=== PATIENT | female | born 1995 | race Caucasian/White ===

== ENCOUNTER 2022-08-30 20:37 | Emergency (ER) | payer OTHER, SELFPAY ==
[2022-08-30 21:25] VITALS: BP 109/72; PULSE 98; RESP 18; O2SAT 100
--- NOTE | 2022-08-30 21:48 | PC.NURSE ---
pt. ambulatory to triage states I am just going to go home.
== END 2022-08-30 21:48 | disposition left against medical advice (07) ==
DX: R51.9 Headache, unspecified (principal)
CPT/HCPCS: 99199

== ENCOUNTER 2022-09-06 00:09 | Inpatient (IN) | payer OTHER, SELFPAY ==
[2022-09-06] VITALS (142 sets, daily range): BP systolic 71–123; BP diastolic 36–87; PULSE 40–125; RESP 16–18; TEMP 36.2–36.8; O2SAT 80–100; BMI 22.5
--- NOTE | 2022-09-06 01:29 | LDADM ---
This patient, Donna Akers, was admitted to Labor/Delivery/Recovery 104 on 09/06/22 at 00:09. Plans for labor, pain management and were discussed with patient. Patient/family oriented to hospital policies and general routines including ID bracelet, bed and alarms, visiting hours, pain management, procedures, bathroom and other care routines, personal items, smoking policy, room service/diet and guest tray routines, infant security routines, and visiting hours. Patient/Family are encouraged to report perceived risks to care and to ask questions if they do not understand what they are told or what they should do. See OBIX for further documentation.
[2022-09-06 02:06] LABS: Basophils Absolute Auto 0.1 K/mm3 (0.0-0.1); Basophils Percent Auto 0.4 % (0.2-1.2); Eosinophils Absolute Auto 0.1 K/mm3 (0-0.3); Eosinophils Percent Auto 0.4 % (0-4.4); Hematocrit 31.2 % (37.0-47.0); Hemoglobin 9.6 g/dL (12.0-15.0); Immature Granulocyte Absolute 0.14 K/mm3 (0.00-0.031); Lymphocytes Absolute Auto 2.83 K/mm3 (0.9-3.2); Lymphocytes Percent Auto 20.5 % (18.3-44.2); Mean Corpuscular HGB Conc 30.8 g/dl (32-36); Mean Corpuscular Hemoglobin 22.2 pg (26-34); Mean Corpuscular Volume 72.2 fl (80-100); Mean Platelet Volume 9.5 fl (7.4-10.4); Monocytes Absolute Auto 1.2 K/mm3 (0.1-0.6); Monocytes Percent Auto 8.8 % (2.6-8.5); Neutrophils Absolute Auto 9.5 K/mm3 (1.3-6.7); Neutrophils Percent Auto 68.9 % (45.5-73.1); Platelet Count Result 523 k/mm3 (150-375); Red Blood Count 4.32 M/mm3 (4.2-5.4); Red Cell Distribution Width 16.4 % (11.5-14.5); White Blood Count 13.8 K/mm3 (4.5-10.0)
[2022-09-06 02:17] LABS: Microcytosis 1+ (NORMAL); Platelet Estimate Increased (Adequate); Schistocytes None Seen (NORMAL)
[2022-09-06] MEDS: LACTATED RINGERS 1,000 ML 125 ML IV CONT ×2 (02:17→02:48)
[2022-09-06] MEDS: ONDANSETRON INJ 4 MG/2 ML VIAL IV PUSH (02:47)
--- NOTE | 2022-09-06 03:00 | WPDANESEPPF ---
Anes - Initial Pre Proc Eval Procedure: Labor Epidural Date/Time: 09/06/22 03:00 Surgeon: Renee Still MD Pre Op Diagnosis: Labor Pain Pre Op Diagnosis: Contractions Patient Data Age: 27 Gender: F Height: 1.6 m Weight: 57.7 kg Last Vital Signs Pulse 76 09/06/22 02:31 BP 118/79 09/06/22 02:46 Pulse Ox 99 09/06/22 02:59 O2 Del Method Room Air 09/06/22 01:23 Allergies Allergy/AdvReac Type Severity Reaction Status Date / Time Penicillins Allergy Severe Difficulty Verified 08/18/22 13:30 Breathing Home Medications Medication Instructions Recorded Confirmed Type prenat.vits,rukhsana,zht-hboo-fzdet 1 tablet PO DAILY 08/18/22 08/18/22 History Laboratory Tests 09/06/22 01:59 WBC 13.8 H K/mm3 (4.5-10.0) RBC 4.32 M/mm3 (4.2-5.4) Hgb 9.6 L g/dL (12.0-15.0) Hct 31.2 L % (37.0-47.0) MCV 72.2 L fl (80-100) MCH 22.2 L pg (26-34) MCHC 30.8 L g/dl (32-36) RDW 16.4 H % (11.5-14.5) Plt Count 523 H k/mm3 (150-375) MPV 9.5 fl (7.4-10.4) Immature Gran % (Auto) 1.0 H % (0-0.5) Neut % (Auto) 68.9 % (45.5-73.1) Lymph % (Auto) 20.5 % (18.3-44.2) Power % (Auto) 8.8 H % (2.6-8.5) Eos % (Auto) 0.4 % (0-4.4) Baso % (Auto) 0.4 % (0.2-1.2) Lymph # (Auto) 2.83 K/mm3 (0.9-3.2) Power # (Auto) 1.2 H K/mm3 (0.1-0.6) Eos # (Auto) 0.1 K/mm3 (0-0.3) Baso # (Auto) 0.1 K/mm3 (0.0-0.1) Abs Immat Gran (auto) 0.14 H K/mm3 (0.00-0.031) Absolute Neuts (auto) 9.5 H K/mm3 (1.3-6.7) Absolute Nucleated RBC 0.0 K/mm3 (0.0-0.012) Nucleated RBC % 0.0 % (0.0-0.2) Platelet Estimate Increased (Adequate) Microcytosis 1+ (NORMAL) Schistocytes None seen (NORMAL) RPR Pending Blood Type A Positive Antibody Screen Pending Patient hx anesthesia problems: none Family hx anesthesia problems: none Results Review: All pre-operative results and documents have been reviewed as part of the pre-operative evaluation. [facility] Family History Family History Other Patient denies significant medical history Social History Social History Smoking status: Never smoker Substance use: never Lack of Transportation: No Lack of Food: Never True Current Housing: I Have Housing Concerned About Future Housing: No Difficulty Paying Gas/Electric Bills: No Difficulty Paying for Meds: No Currently Unemployed: No Education: High School Diploma/GED Difficulty w/ Childcare or Family Care: No Spiritual care concerns: No Anes - Eval Final PreProcedure Day of Procedure 09/06/22 03:00 Patient weight: normal Heart: regular rate and rhythm Neurological: alert and oriented ASA classification: II Emergent: no Anesthetic plan: proceed Anesthesia type and monitoring: regional epidural and standard monitoring Results Review: All pre-operative results and documents have been reviewed as part of the pre-operative evaluation. Informed Consent: The patient's anesthetic plan and its attendant risks and benefits were discussed with the patient/family/POA. Questions were solicited and answers provided to the satisfaction of the patient/family/POA.
--- NOTE | 2022-09-06 03:24 | WPDANESEPN ---
Anes - Epidural Procedure Note Date/Time: 09/06/22 03:24 Consent: I have discussed with the patient/family/POA, the placement of an epidural catheter and the use of epidural narcotic/local anesthetic for labor analgesia and/or postoperative pain management, including associated potential risks, benefits, complications and side effects. I have discussed alternative methods of labor analgesia and/or postoperative pain management. The patient/family/POA, understand(s) and wish(es) to proceed with epidural narcotic/local anesthetic for labor analgesia and/or postoperative pain management. Time-Out: A pre-procedural Time-Out was completed immediately before starting the procedure and confirmed: Patient Identification, Site, Procedure, Patient Position and the Availability of Requisite Equipment. Clinical Indications: Labor Pain Epidural Insertion Note Patient position: sitting Skin prep: chlorhexidine and sterile drape Needle: 18g Tuohy-Schliff Catheter: 20g Unstyleted Technique: Loss of resistance. Level of insertion: L4/5 Catheter skin francis (cm): 4 Length in epidural space (cm): 9 Skin anesthesia: lidocaine 1% Test dose: 1.5% Lidocaine with [id number] Epi, negative for subarachnoid Inj and negative for intravascular Inj Time of test dose: 03:13 Observations: tolerated well
--- NOTE | 2022-09-06 07:33 | PM.IMHP ---
H&P: HPI History of Present Illness Date/Time: 09/06/22 07:33 Chief Complaint: labor Narrative: multip prsented in labor at 38+ weeks. uncomplicated. GBS neg. Review of Systems Review of Systems: All systems reviewed & are unremarkable except as noted in HPI and below PMFSH Family History Family History Other Patient denies significant medical history Social History Social History Smoking status: Never smoker Substance use: never Lack of Transportation: No Lack of Food: Never True Current Housing: I Have Housing Concerned About Future Housing: No Difficulty Paying Gas/Electric Bills: No Difficulty Paying for Meds: No Currently Unemployed: No Education: High School Diploma/GED Difficulty w/ Childcare or Family Care: No Spiritual care concerns: No Meds Home Medications and Allergies Home Medications Medication Instructions Recorded Confirmed Type prenat.vits,rukhsana,znz-hdus-uvgxz 1 tablet PO DAILY 08/18/22 08/18/22 History Allergies Allergy/AdvReac Type Severity Reaction Status Date / Time Penicillins Allergy Severe Difficulty Verified 08/18/22 13:30 Breathing Vital Signs Vital Signs - 24 hr 09/06/22 00:45 09/06/22 01:01 09/06/22 01:16 Pulse Rate 79 80 74 Blood Pressure 112/73 110/67 105/67 Pulse Oximetry Oxygen Delivery 09/06/22 01:31 09/06/22 01:45 09/06/22 02:01 Pulse Rate 79 81 125 H Blood Pressure 113/76 108/78 111/56 L Pulse Oximetry Oxygen Delivery 09/06/22 02:15 09/06/22 02:31 09/06/22 02:46 Pulse Rate 73 76 Blood Pressure 109/74 107/72 118/79 Pulse Oximetry Oxygen Delivery 09/06/22 02:58 09/06/22 02:58 09/06/22 02:59 Pulse Rate Blood Pressure Pulse Oximetry 80 L 81 L 99 Oxygen Delivery 09/06/22 03:01 09/06/22 03:04 09/06/22 03:07 Pulse Rate 76 87 Blood Pressure 115/78 107/71 Pulse Oximetry 97 85 L Oxygen Delivery 09/06/22 03:08 09/06/22 03:13 09/06/22 03:16 Pulse Rate 79 88 Blood Pressure 109/71 96/74 L Pulse Oximetry 89 L 99 Oxygen Delivery 09/06/22 03:17 09/06/22 03:18 09/06/22 03:19 Pulse Rate 73 77 Blood Pressure 116/81 122/73 Pulse Oximetry 100 Oxygen Delivery 09/06/22 03:22 09/06/22 03:23 09/06/22 03:25 Pulse Rate 80 71 Blood Pressure 118/72 114/62 Pulse Oximetry 100 Oxygen Delivery 09/06/22 03:28 09/06/22 03:31 09/06/22 03:33 Pulse Rate 79 66 Blood Pressure 117/66 120/62 Pulse Oximetry 100 100 Oxygen Delivery 09/06/22 03:34 09/06/22 03:37 09/06/22 03:38 Pulse Rate 67 69 Blood Pressure 120/69 116/69 Pulse Oximetry 99 Oxygen Delivery 09/06/22 03:40 09/06/22 03:43 09/06/22 03:46 Pulse Rate 62 65 72 Blood Pressure 122/71 119/68 123/72 Pulse Oximetry 100 Oxygen Delivery 09/06/22 03:48 09/06/22 03:49 09/06/22 03:52 Pulse Rate 65 63 Blood Pressure 118/66 117/71 Pulse Oximetry 99 Oxygen Delivery 09/06/22 03:53 09/06/22 03:55 09/06/22 03:58 Pulse Rate 64 Blood Pressure 120/68 Pulse Oximetry 100 99 Oxygen Delivery 09/06/22 04:01 09/06/22 04:03 09/06/22 04:08 Pulse Rate 75 Blood Pressure 123/78 Pulse Oximetry 99 99 Oxygen Delivery 09/06/22 04:13 09/06/22 04:16 09/06/22 04:18 Pulse Rate 78 Blood Pressure 113/72 Pulse Oximetry 99 98 Oxygen Delivery 09/06/22 04:23 09/06/22 04:28 09/06/22 04:31 Pulse Rate 65 Blood Pressure 116/75 Pulse Oximetry 99 99 Oxygen Delivery 09/06/22 04:33 09/06/22 04:38 09/06/22 04:43 Pulse Rate Blood Pressure Pulse Oximetry 99 98 99 Oxygen Delivery 09/06/22 04:46 09/06/22 04:48 09/06/22 04:53 Pulse Rate 83 Blood Pressure 115/70 Pulse Oximetry 98 98 Oxygen Delivery 09/06/22 04:58 09/06/22 05:01 09/06/22 05:03 Pulse Rate 67 Blood Pressure 98/50 L
[2022-09-06] MEDS: OXYTOCIN 30 UNITS/NS 500 ML 30 UNITS/500 ML BAG 999 UNITS IV CONT (07:44)
[2022-09-06 07:46] LABS: Rapid Plasma Reagin Non-Reactive (NonReactive)
--- NOTE | 2022-09-06 07:57 | PM.OBPRVD ---
OB - Delivery Note Procedure Delivery date: 09/06/22 Procedure: Delivery monitor: External FHT and Internal Uterine Route of delivery: Episiotomy description: None Laceration Description: None Quantitative Blood Loss (ml): 50 Anesthesia type: Epidural Disposition: Floor Narrative: With adequate expulsive efforts by the mother, the baby's head was delivered OA. The baby's anterior shoulder was delivered under the pubic symphysis without difficulty. The posterior shoulder and the rest of the baby delivered without difficulty. The infant was placed on the mothers chest and suctioned and stimulated. The cord was clamped and cut immediately due to short cord. Mother and baby both stable. Baby Date of : 09/06/22 Time of : 07:40 Weeks of gestation at delivery: 38 gender: Male Weight (pounds): 5 Weight (ounces): 15 presentation: vertex Placenta delivery description: Spontaneous Cord Vessel Description: 3 Vessels and Clamped/Cut score one minute: 9 score five minutes: 9
[2022-09-06] MEDS: OXYTOCIN 30 UNITS/NS 500 ML 30 UNITS/500 ML BAG 125 UNITS IV CONT (08:17)
[2022-09-06 08:34] LABS: Amphetamine Screen Urine Negative (Negative); Barbiturate Screen Urine Negative (Negative); Benzodiazepines Screen Urine Negative (Negative); Cannabinoid Screen Urine Negative (Negative); Cocaine Screen Urine Negative (Negative); Methadone Screen Urine Negative (Negative); Opiate Screen Urine Negative (Negative); Phencyclidine Screen Urine Negative (Negative)
--- NOTE | 2022-09-06 10:25 | PC.NURSE ---
Patient transferred to post room #283 via wheel chair. Support person present. Oriented to unit, room, information board, rooming in, admission packet and security measures. Patient verbalizes understanding.
[2022-09-06] MEDS: IBUPROFEN 600 MG TABLET PO ×3 (10:48→23:30)
[2022-09-06] MEDS: DOCUSATE SODIUM 100 MG CAPSULE PO (17:17)
[2022-09-06] MEDS: POLYSACCHARIDE IRON COMPLEX 150 MG CAPSULE PO (17:17)
[2022-09-07 04:55] LABS: Hematocrit 29.1 % (37.0-47.0)
[2022-09-07 07:12] VITALS: BP 101/67; PULSE 62; RESP 16; TEMP 36.4; O2SAT 99
--- NOTE | 2022-09-07 07:50 | PM.OBPNVD ---
OB - PN: Subj Subjective Date/time seen: 09/07/22 07:50 , day 1, no complaints OB - PN: Obj Data Labs 09/07/22 04:16 Labs: Laboratory Results - last 24 hr 09/06/22 09/07/22 08:06 04:16 Hgb 9.0 L Hct 29.1 L Urine Opiates Screen Negative Urine Methadone Screen Negative Ur Barbiturates Screen Negative Ur Phencyclidine Scrn Negative Ur Amphetamine Screen Negative U Benzodiazepines Scrn Negative Urine Cocaine Screen Negative U Cannabinoids Screen Negative OB - PN A/P Plan day: 1 Time Spent With Patient Time: Total time spent is greater than 50% in coordination of care (as documented) at patient's floor/unit and/or counseling patient: Review of Systems Review of Systems: All systems reviewed & are unremarkable except as noted in HPI and below Exam Narrative: fundus firm Const: General: cooperative and healthy appearing Chest: Chest palpation & inspection: normal inspection of the chest Resp: Effort & Inspection: normal respiratory effort Skin: General skin exam: normal color Psych: Appearance: grossly normal
[2022-09-07] MEDS: POLYSACCHARIDE IRON COMPLEX 150 MG CAPSULE PO ×2 (08:39→16:04)
[2022-09-07] MEDS: IBUPROFEN 600 MG TABLET PO ×2 (08:39→16:05)
--- NOTE | 2022-09-07 08:41 | PC.NURSE ---
On 09/07/22, the student, Shandra Bautista, provided care and completed [facility] documentation on this patient. I have reviewed the student's documentation and agree with the findings.
--- NOTE | 2022-09-07 12:07 | WPDANLDPN2 ---
Anes-Prog Note L&D Date/Time: 09/07/22 12:07 Neuro status: Neuro function grossly intact. Vital Signs: Last Vital Signs Temp 36.4 C L 09/07/22 07:12 Pulse 62 09/07/22 07:12 Resp 16 09/07/22 07:12 BP 101/67 09/07/22 07:12 Pulse Ox 99 09/07/22 07:12 O2 Del Method Room Air 09/06/22 23:30 Pain score (VAS): 0 Patient feedback: Patient satisfied with anesthetic care.
--- NOTE | 2022-09-07 16:10 | PC.NURSE ---
Spoke with patient regarding custody of her other three children, per pt her older sister has custody of her first child (4 years old), she has custody of her second child (2 years old) and her third child (almost 1 year old) is in protective custody due to having a heart defect. Per patient DCFS is going to make a home visit tomorrow 09/08/22 @ 3pm. Jenifer with Care Coordination spoke with pt today as well and was given the same information, she is going to contact DCFS and follow up with the RN tomorrow regarding discharge. Copy of this note to be put into baby's chart.
--- NOTE | 2022-09-07 17:10 | PCCCNOTE ---
Addendum entered by JUSTIN Canela 09/08/22 16:22: Received call this morning from DCFS registered nurse supervisor David out of [facility], . David confirms pt. is current with DCFS and reports that pt. and baby are able to discharge from this hospital today and pt.'s ongoing director of casework will meet them at their home this afternoon. RN aware. Original Note: Care Coordination Consult Received consult regarding open DCFS case for pt. Met with pt. and [employer] who reports the following information. They reside at home together. Pt. has four total children, a 3 year old (in custody of pt.'s sister), 2 year old (in protective custody via DCFS) , 1 year old (in care of pt.) and baby boy Delphine. Pt. confirms she has a current DCFS case involving her two year old in regards to medical concerns in [facility]. Requested name of DCFS worker however this was not provided to CC. Pt. confirms she has been drug testing through [facility] as apart of the court ordered services. She reports a past use of marijuana. Denies any substances at this time. Baby and pt. were drug tested with urinalysis for both negative. Umbilical cord is pending at this time. Pt. has all necessary equipment and supplies for baby at home. Has WIC information if needed. resources and donation basket provided to them for use at discharge. Spoke with [facility] social group worker Elana in reference of above information and reports information will be taken and sent to the [facility] office for review, intake ID [id number]. Per Elana the [facility] office will contact CC in the morning regarding whether they will need to come see pt. prior to discharge. CESAR aware. Will follow.
[2022-09-07 19:53] VITALS: BP 110/73; PULSE 58; RESP 16; TEMP 36.9; O2SAT 99
[2022-09-07] MEDS: ACETAMINOPHEN 325 MG TABLET 650 MG PO (20:00)
[2022-09-08] MEDS: IBUPROFEN 600 MG TABLET PO ×2 (02:05→08:26)
--- NOTE | 2022-09-08 07:18 | PM.OBPNVD ---
OB - PN: Subj Subjective Date/time seen: 09/08/22 07:18 Patient comments: no complaints, pain well controlled and tolerating diet OB - PN: Obj Data Labs 09/07/22 04:16 OB - PN A/P Plan day: 2 Plan: routine care and discharge home Time Spent With Patient Time: Total time spent is greater than 50% in coordination of care (as documented) at patient's floor/unit and/or counseling patient: Exam Const: General: comfortable and no acute distress Resp: Effort & Inspection: normal respiratory effort Auscultation: no rales, no rhonchi and no wheezes Cardio: Rate: regular rate Heart sounds: no click, no murmurs and no rubs GI: GI Palp: Yes Soft to palpation and No Tenderness to palpation present (GI) Auscultation: normal bowel sounds Extrem: General: normal to inspection, no pedal edema and no calf tenderness
--- NOTE | 2022-09-08 07:21 | PM.OBDSVD ---
DS: Admitting Diagnosis Discharge Date 09/08/22 Admitting Diagnosis term OB - DS: Summary OB Procedures : None OB Procedures Intrapartum: Spontaneous Vag Delivery OB Procedures: : None Time Spent with Patient Time attestation: Total time spent providing and/or coordinating discharge services: Discharge Plan Discharge Discharging Clinician: Lauren Shin Patient Disposition: Home, Self-Care Activity: pelvic rest Diet: regular Patient Instructions: Antibiotic Form Stand Alone Forms: General Discharge Information Follow-up/Referrals: Lauren Shin MD [Physician] - Discharge Medications: Continued #2 Tablet 1 tablet PO DAILY Date of admission: 09/06/22 00:09 Primary Care Provider: PHYSICIAN,[employer] Admitting Provider: Renee Still Attending physician on admission: Renee Still Condition: Stable
[2022-09-08 08:19] VITALS: BP 101/71; PULSE 73; RESP 18; TEMP 36.3; O2SAT 100
[2022-09-08] MEDS: POLYSACCHARIDE IRON COMPLEX 150 MG CAPSULE PO (08:26)
--- NOTE | 2022-09-08 08:30 | PC.NURSE ---
Patient viewed the discharge video Mother & Baby Care, The First Two Weeks . Patient was given the opportunity and encouraged to ask questions. Patient verbalized understanding of information shared and has been given the mother/baby guide for home reference.
[2022-09-08] MEDS: ACETAMINOPHEN 325 MG TABLET 650 MG PO (13:06)
[2022-09-08] MEDS: WITCH HAZEL 40 PADS 1 PAD TOPICAL (13:07)
[2022-09-08] MEDS: BENZOCAINE 20% AER SPR (*SP) 56 GM CAN 1 SPRAY TOPICAL (13:07)
[2022-09-09 13:04] VITALS: BP 106/73; PULSE 69; RESP 16; TEMP 37.5; O2SAT 99
== END 2022-09-08 13:56 | disposition home or self-care (01) | DRG 560 ==
LOC: ANHOB2 09-08 13:42 → ANHLDR 09-09 11:36 → ANHOB2 09-09 11:36
PROVIDERS: Admitting Provider Obstetrics & Gynecology; Visit Provider Obstetrics & Gynecology
DX: O43.113 Circumvallate placenta, third trimester (principal); O77.0 Labor and delivery complicated by meconium in amniotic fluid; Z37.0 Single live birth; Z3A.38 38 weeks gestation of pregnancy
CPT/HCPCS: 36415; 80307; 85014; 85018; 85025; 86592; 86850; 86900; 86901; A9270; J2405; J2590; J2795; J7120

== ENCOUNTER 2022-12-12 01:00 | Day surgery (SDC) | payer OTHER, SELFPAY ==
[2022-12-06 14:32] VITALS: BMI 21.2
--- NOTE | 2022-12-06 14:37 | SUR.PREOP ---
Report to the Outpatient Waiting Room, entrance under the green pavilion located off [facility], at time _0600 on date _12/12/22 . Planned Procedure Time: __30 . Time changes happen often and if your time is changed the preop area will call you the afternoon before. - You and your visitor will be asked to self-screen and do not enter if you have any COVID symptoms. - A mask is optional within the hospital at this time. Patients may have clear liquids (water, carbonated beverages, clear teas, apple juice) until 3 hours prior to surgery with a maximum of 20 ounces. - No food from midnight until time of surgery - Infants may have breast milk until 4 hours before surgery, infant formula 6 hours prior to surgery. - Children will be allowed to drink immediately following surgery. If applicable, please bring a bottle or sippy cup to assist with drinking. Juice, water, soda, and popsicles are readily available. For infants on formula, please bring formula the day of surgery. Pacifiers are allowed. Take the following medications with a SIP of water the morning of surgery: n/a DO NOT STOP ANY OF YOUR OTHER PRESCRIPTION MEDICATIONS PRIOR TO SURGERY ?EXCEPT THE FOLLOWING Medications to discontinue per physician n/a Date to take last dose__n/a Please no make-up, nail japanese, hairspray, perfume, deodorant, or body powder the day of surgery. No jewelry (including any body piercings) or valuables the day of surgery, leave them at home. Please take a shower or bath the night before, or the morning of, surgery with an antibacterial soap. Wear comfortable, loose fitting clothing. Children are encouraged to wear pajamas. - Jewelry must be removed prior to entering the operating room. Rings and piercings that are not removed may be cut off. - The hospital will not accept responsibility for valuables. - Please leave all valuables, including medications, at home the day of surgery. If you are going home after surgery, a licensed production truck driver must drive you home. - NO public transportation without another adult if you receive anesthesia. - We recommend that an adult stay with you for 24 hours following discharge. - We also recommend that you do not drive, make important decision, drink alcoholic beverages, or take any drugs that were not prescribed by your health care provider for at least 24 hours after your discharge time. For Pediatric surgeries, we recommend two adults accompany the child home. Follow any additional instructions given to you from your surgeon. If you or anyone in your household have experienced Covid symptoms in the past week, please notify your surgeon or the nurse liaison at the phone number below for possible testing. Telephone instructions given to gareth barraza and asked if any additional questions and then verbalized understanding. Patient advised to call surgeon office or pre surgery nurse liaison [phone] if any additional questions.
[2022-12-12] VITALS (15 sets, daily range): BP systolic 92–117; BP diastolic 50–74; PULSE 60–107; RESP 12–18; TEMP 36.1–36.5; O2SAT 96–100
[2022-12-12] MEDS: ACETAMINOPHEN 500 MG TABLET 1000 MG PO (06:18)
--- NOTE | 2022-12-12 06:38 | P.PNAN_ITS ---
Anes - Initial Pre Proc Eval Procedure: Operation Date: 12/12/22 07:30 Proposed Procedures p Bilateral Laparoscopic Salpingectomy - Renee Still MD Date/Time: 12/12/22 06:38 Surgeon: Renee Still MD Pre Op Diagnosis: desires sterilization Patient Data Age: 27 Gender: F Height: 1.6 m Weight: 53.5 kg Allergies Allergy/AdvReac Type Severity Reaction Status Date / Time Penicillins Allergy Severe Difficulty Verified 12/12/22 06:15 Breathing Home Medications Medication Instructions Recorded Confirmed Type No Home Medications 12/06/22 12/06/22 History Patient hx anesthesia problems: none Family hx anesthesia problems: none Results Review: All pre-operative results and documents have been reviewed as part of the pre- operative evaluation. [facility] Family History Family History Other Patient denies significant medical history Social History Social History Smoking status: Never smoker Substance use: never Lack of Transportation: No Lack of Food: Never True Current Housing: I Have Housing Concerned About Future Housing: No Difficulty Paying Gas/Electric Bills: No Difficulty Paying for Meds: No Currently Unemployed: No Education: High School Diploma/GED Difficulty w/ Childcare or Family Care: No Living arrangements: with family Spiritual care concerns: No Anes - Eval Final PreProcedure Day of Procedure 12/12/22 06:38 Patient weight: normal Heart: regular rate and rhythm Lungs: clear to auscultation Airway: Mallampati scale class III and special considerations poor dentition Neurological: alert and oriented Last oral intake: >/= 8 hours ASA classification: II Emergent: no Anesthetic plan: proceed Anesthesia type and monitoring: general ETT and standard monitoring Results Review: All pre-operative results and documents have been reviewed as part of the pre- operative evaluation. Informed Consent: The patient's anesthetic plan and its attendant risks and benefits were discussed with the patient/family/POA. Questions were solicited and answers provided to the satisfaction of the patient/family/POA.
[2022-12-12] MEDS: LACTATED RINGERS 1,000 ML 30 ML IV CONT ×3 (06:50→10:30)
[2022-12-12] MEDS: KETOROLAC 15 MG/ML VIAL (*BKC) IV PUSH (06:50)
--- NOTE | 2022-12-12 07:22 | PM.IMHP ---
H&P: HPI History of Present Illness Date/Time: 12/12/22 07:22 Chief Complaint: sterilization Narrative: Donna is a here for [facility] bilateral salpingectomy for sterilization. She is certain she is done with childbearing. Her history is noncontributory except for anxiety and depression, stable now. No history of abdominal surgery. Review of Systems Review of Systems: All systems reviewed & are unremarkable except as noted in HPI and below PMFSH Family History Family History Other Patient denies significant medical history Social History Social History Smoking status: Never smoker Substance use: never Lack of Transportation: No Lack of Food: Never True Current Housing: I Have Housing Concerned About Future Housing: No Difficulty Paying Gas/Electric Bills: No Difficulty Paying for Meds: No Currently Unemployed: No Education: High School Diploma/GED Difficulty w/ Childcare or Family Care: No Living arrangements: with family Spiritual care concerns: No Meds Home Medications and Allergies Home Medications Medication Instructions Recorded Confirmed Type No Home Medications 12/06/22 12/06/22 History Allergies Allergy/AdvReac Type Severity Reaction Status Date / Time Penicillins Allergy Severe Difficulty Verified 12/12/22 06:15 Breathing Vital Signs Vital Signs - 24 hr 12/12/22 07:01 Temperature 97.7 F Pulse Rate 75 Respiratory Rate 16 Blood Pressure 101/74 Pulse Oximetry 100 Oxygen Delivery Room Air Exam Const: General: no acute distress Resp: Effort & Inspection: normal respiratory effort Auscultation: clear to auscultation bilaterally Cardio: Rate: regular rate Rhythm: regular rhythm GI: GI Palp: Yes Soft to palpation Extrem: General: normal to inspection Assessment and Plan Assessment and plan (1) Request for sterilization: Code(s): Z30.2 - Encounter for sterilization Status: Acute Plan [facility], previously consented. ancef
--- NOTE | 2022-12-12 07:24 | WPDHPUPDATE1 ---
History and Physical Update Update Date/Time: 12/12/22 07:24 History and Physical has been reviewed, including an updated exam of the patient. There are NO changes in the patient's condition. Risks, benefits, and alternatives have been discussed and questions answered. Patient agrees to proceed with procedure.
[2022-12-12] MEDS: ceFAZolin 2 GM/D5W 50 ML 2 GM/50 ML BAG IVPB (07:28)
[2022-12-12] MEDS: BUPIVACAINE/EPINEPHRINE 0.5% 10 ML VIAL 30 ML INFILTRATE (08:00)
--- NOTE | 2022-12-12 08:12 | W.PM.PROC2 ---
Procedure Note - Detailed Date of Procedure 12/12/22 Pre-op Diagnosis desires sterilization Post-op Diagnosis Same Procedure Performed Laparoscopic Bilateral Salpingectomy Surgeon Renee Still MD Anesthesia General Indications undesired future fertility Findings normal uterus, tubes, and ovaries Description of Procedure The patient was taken to the OR and placed in dorthal lithotomy in [facility]. She received general anesthesia. A speculum was placed and the cervix grasped with a single tooth tenaculum and an acorn uterine manipulator placed easily. A mtz catheter had previously been placed. She had received preoperative antibiotics. A 5mm subumbilical skin incision was made and using direct visualization, the trocar was inserted intraperitoneally. The abdomen was insufflated and the pelvis inspected with the above findings. Bilateral 5mm incisions were made and trocars were placed under direct visualization. The right tube was grasped and elevated and using the Ligasure device, the tube was sequentially cauterized and ligated and removed through the trocar and sent to pathology. Similarly, on the left, the tube was removed using the Ligasure device. Hemostasis was noted. The upper abdomen was inspected and noted to be normal. The trocars were removed and the Co2 was removed from the abdomen. The skin was closed with 4-0 vicryl and steri strips. The patient tolerated the procedure well and was taken to the recovery room in stable condition. EBL 10cc. Estimated Blood Loss 10 Drains No Packing No Pathology Yes Complications No immediate complications Condition Stable Disposition Same day
[2022-12-12] MEDS: ONDANSETRON INJ 4 MG/2 ML VIAL IV PUSH (09:35)
[2022-12-12] MEDS: fentaNYL CITRATE INJ (*CRX) 100 MCG/2 ML VIAL 25 MCG IV PUSH (09:57)
[2022-12-12] MEDS: SCOPOLAMINE 1.5 MG PATCH TRANSDERM (10:24)
[2022-12-12] MEDS: diphenhydrAMINE HCl INJ 50 MG/ML VIAL 25 MG IV PUSH (10:27)
== END 2022-12-12 12:25 | disposition home or self-care (01) ==
PROVIDERS: Visit Provider Obstetrics & Gynecology
PROC: (CPT 49320; principal; 2022-12-12 07:30)
DX: Z30.2 Encounter for sterilization (principal); N83.8 Other noninflammatory disorders of ovary, fallopian tube and broad ligament
CPT/HCPCS: 58661; 88302; A9270; J0690; J1100; J1200; J1885; J2250; J2405; J2704; J3010; J7030; J7120